=== PATIENT | female | born 1980 | race Caucasian/White ===

== ENCOUNTER 2016-10-03 18:54 | Emergency (ER) | payer MEDICAID ==
[~2016-10-03] VITALS: Ht 160 cm; Wt 86.3 kg
[2016-10-03] MEDS ORDERED: ONDANSETRON 2MG/ML, 2ML ONE (19:23)
[2016-10-03] MEDS ORDERED: METOCLOPRAMIDE 5 MG/ML, 2ML ONE (19:23)
[2016-10-03] MEDS ORDERED: DIPHENHYDRAMINE 50 MG/ML, 1ML ONE (19:23)
[2016-10-03] MEDS ORDERED: KETOROLAC 30 MG/1 ML ONE (19:23)
[2016-10-03] MEDS ORDERED: ONDANSETRON 2MG/ML, 2ML IVPush ONE (19:30)
[2016-10-03] MEDS ORDERED: DIPHENHYDRAMINE 50 MG/ML, 1ML IVPush ONE (19:30)
[2016-10-03] MEDS ORDERED: METOCLOPRAMIDE 5 MG/ML, 2ML IVPush ONE (19:30)
[2016-10-03] MEDS ORDERED: SODIUM CHLORIDE FLUSH 10ML SYR IVF ONE (19:30)
[2016-10-03] MEDS ORDERED: SODIUM CHLORIDE 0.9% 1,000ML IVBOLUS ONE (19:30)
[2016-10-03] MEDS ORDERED: KETOROLAC 30 MG/1 ML IVPush ONE (19:30)
[2016-10-03 19:53] LABS: RAPID INFLUENZA A Negative (Negative); RAPID INFLUENZA B Negative (Negative)
[2016-10-03] MEDS ORDERED: GABA-827 PO (19:53)
[2016-10-03] MEDS ORDERED: SUMA50TA3 PO (19:53)
[2016-10-03] MEDS ORDERED: VERA40TA PO (19:53)
[2016-10-03 20:11] LABS: HEMOGLOBIN 15.1 g/dL (11.7-16.4)
[2016-10-03 20:25] LABS: BLOOD UREA NITROGEN 11 mg/dL (7-18)
[2016-10-03 21:39] VITALS: BP 133/87
== END 2016-10-03 21:44 | disposition home or self-care (01) ==
LOC: ED 21:38
DX: J02.9 Acute pharyngitis, unspecified (principal); J04.0 Acute laryngitis; B34.9 Viral infection, unspecified; M19.90 Unspecified osteoarthritis, unspecified site; G43.909 Migraine, unspecified, not intractable, without status migrainosus
CPT/HCPCS: 36415; 71020; 80048; 82040; 83605; 85025; 87400; 96361; 96374; 96375; 99285; J1200; J1885; J2405; J2765; J7030

== ENCOUNTER → 2016-10-22 | Outpatient (CLI) | payer MEDICAID ==
[~2016-10-22] MED LIST: GABA-827 PO; SUMA50TA3 PO; VERA40TA PO
== END | disposition home or self-care (01) ==
LOC: CFH 12:38
PROVIDERS: ATTEND Nurse Practitioner
DX: R22.42 Localized swelling, mass and lump, left lower limb (principal)

== ENCOUNTER 2017-05-16 20:17 | Emergency (ER) | payer MEDICAID ==
[~2017-05-16] VITALS: Ht 167.6 cm; Wt 92.0 kg
[2017-05-16] MEDS ORDERED: CITA20TA9 PO (21:06)
[2017-05-16] MEDS ORDERED: BACL-19 PO (21:06)
[2017-05-16] MEDS ORDERED: DIAZEPAM 5 MG/ML, 2ML IM ONE (21:10)
[2017-05-16] MEDS ORDERED: KETOROLAC 30 MG/1 ML ONE (21:12)
[2017-05-16] MEDS ORDERED: KETOROLAC 30 MG/1 ML IM ONE (21:30)
[2017-05-16 22:33] VITALS: BP 127/80
== END 2017-05-16 22:36 | disposition home or self-care (01) ==
LOC: ED 22:00
DX: G24.3 Spasmodic torticollis (principal); G43.909 Migraine, unspecified, not intractable, without status migrainosus; G62.9 Polyneuropathy, unspecified; Z87.891 Personal history of nicotine dependence
CPT/HCPCS: 72050; 96372; 99284; J1885; J3360

== ENCOUNTER 2017-05-22 10:38 | Emergency (ER) | payer MEDICAID ==
[~2017-05-22] VITALS: Ht 160 cm; Wt 90.0 kg
[~2017-05-22 10:38] MED LIST changes: +BACL-19 PO; +CITA20TA9 PO
[2017-05-22] MEDS ORDERED: SODIUM CHLORIDE 0.9% 1,000ML IVBOLUS ONE (11:30)
[2017-05-22] MEDS ORDERED: SODIUM CHLORIDE FLUSH 10ML SYR IVF ONE (11:30)
[2017-05-22] MEDS ORDERED: VERA240T86 PO (12:15)
[2017-05-22 12:44] VITALS: BP 117/77
[2017-05-22 12:44] LABS: HEMOGLOBIN 12.5 g/dL (11.7-16.4); WHITE BLOOD COUNT 12.1 x10^3/uL (3.4-10)
[2017-05-22 12:57] LABS: ASPARTATE AMINO TRANSFERASE 11 U/L (15-37); BLOOD UREA NITROGEN 9 mg/dL (7-18)
[2017-05-22 13:04] LABS: IS PT STATUS REG ER OR PRE ER? YES
== END 2017-05-22 15:08 | disposition home or self-care (01) ==
LOC: ED 12:33
DX: R11.2 Nausea with vomiting, unspecified (principal); R19.7 Diarrhea, unspecified; G43.909 Migraine, unspecified, not intractable, without status migrainosus; G62.9 Polyneuropathy, unspecified
CPT/HCPCS: 36415; 74020; 80053; 81003; 83690; 84484; 84703; 85025; 93005; 99285; J7030

== ENCOUNTER 2018-05-14 14:04 | Emergency (ER) | payer MEDICAID ==
[~2018-05-14] VITALS: Ht 160 cm; Wt 91.2 kg
[~2018-05-14 14:04] MED LIST changes: +VERA240T86 PO
[2018-05-14 14:08] VITALS: BP 120/63
[2018-05-14] MEDS ORDERED: LIDOCAINE-MPF 1%, 5ML INFIL ONE (14:30)
[2018-05-14] MEDS ORDERED: LIDOCAINE-MPF 1%, 5ML ONE ×2 (14:51→15:29)
[2018-05-14] MEDS ORDERED: BACITRACIN ZINC OINT 500U/GM, 0.9 GM ONE (15:41)
== END 2018-05-14 15:50 | disposition home or self-care (01) ==
LOC: ED 14:44
DX: S61.011A Laceration without foreign body of right thumb without damage to nail, initial encounter (principal); G43.909 Migraine, unspecified, not intractable, without status migrainosus; F32.9 Major depressive disorder, single episode, unspecified; M54.12 Radiculopathy, cervical region; G62.9 Polyneuropathy, unspecified; M19.90 Unspecified osteoarthritis, unspecified site; Z87.798 Personal history of other (corrected) congenital malformations; Z87.09 Personal history of other diseases of the respiratory system; W26.0XXA Contact with knife, initial encounter; Y93.89 Activity, other specified; Y92.89 Other specified places as the place of occurrence of the external cause; Y99.8 Other external cause status
CPT/HCPCS: 12001; 99283

== ENCOUNTER 2020-12-04 16:15 | Emergency (ER) | payer MEDICAID ==
[~2020-12-04] VITALS: Ht 157.5 cm; Wt 94.5 kg
[~2020-12-04 16:15] MED LIST changes: +VERA240T10 PO; -VERA240T86 PO
--- NOTE | 2020-12-04 20:23 | NUR ---
conduit helper: Pt wheeled back from lobby to room at this time.
--- NOTE | 2020-12-04 20:50 | NUR ---
PT HERE FOR C/O VOMITITING X2 DAYS, DENIES ANY SICK CONTACTS. PLACED ON VITALS MONITORS, CALL LIGHT GIVEN TO PT.
[2020-12-04] MEDS ORDERED: PROMETHAZINE 25 MG/ML, 1ML ONE (21:17)
[2020-12-04] MEDS ORDERED: ONDANSETRON 2MG/ML, 2ML ONE ×2 (21:17→22:09)
[2020-12-04] MEDS ORDERED: MORPHINE SULFATE 4 MG/ML, 1ML ONE (21:18)
[2020-12-04] MEDS ORDERED: FAMOTIDINE 20 MG/2 ML ONE (21:18)
[2020-12-04] MEDS ORDERED: FAMOTIDINE 20 MG/2 ML IVPush ONE (21:30)
[2020-12-04] MEDS ORDERED: SODIUM CHLORIDE FLUSH 10ML SYR IVF ONE (21:30)
[2020-12-04] MEDS ORDERED: PROMETHAZINE 25 MG/ML, 1ML IM ONE (21:30)
[2020-12-04] MEDS ORDERED: ONDANSETRON 2MG/ML, 2ML IVPush ONE (21:30)
[2020-12-04] MEDS ORDERED: SODIUM CHLORIDE 0.9% 1,000ML IVBOLUS ONE (21:30)
[2020-12-04] MEDS ORDERED: MORPHINE SULFATE 4 MG/ML, 1ML IVPush PRN (21:30)
[2020-12-04 21:32] LABS: MEAN CORPUSCULAR HEMOGLOBIN 28.2 pg (27.0-34.8); MEAN CORPUSCULAR HGB CONC 34.4 g/dL (32.4-35.8); MEAN PLATELET VOLUME 6.6 fL (7.4-10.4); PLATELET COUNT 300 x10^3/uL (130-400); RED BLOOD COUNT 5.39 x10^6/uL (3.82-5.3); RED CELL DISTRIBUTION WIDTH 13.8 % (9.6-15.2)
[2020-12-04 21:36] LABS: ALANINE AMINOTRANSFERASE 17 U/L (12-78); ALBUMIN 3.7 g/dL (3.4-5.0); ANION GAP 9 mmol/L (5-15); CALCIUM 9.1 mg/dL (8.5-10.1); CHLORIDE 106 mmol/L (98-107); CREATININE 0.89 mg/dL (0.55-1.02)
[2020-12-04 21:39] LABS: ALKALINE PHOSPHATASE 66 U/L (45-117); BILIRUBIN,TOTAL 0.6 mg/dL (0.2-1.0); TOTAL PROTEIN 7.9 g/dL (6.4-8.2)
[2020-12-04 22:03] LABS: ANISOCYTOSIS 1+; LYMPH#(MANUAL) 5.35 x10^3/uL (1-3.4); LYMPHS% (MANUAL) 25 % (22-44); MICROCYTOSIS 1+; MONOS% (MANUAL) 7 % (2-9); POLYCHROMASIA 1+; REACTIVE LYMPHS # (MANUAL) 0.21 x10^3/uL (0-0); REACTIVE LYMPHS % (MANUAL) 1 % (0-0); SEG#(MANUAL) 14.34 x10^3/uL (1.8-6.8); SEGS% (MANUAL) 67 % (42-75)
[2020-12-04 22:04] LABS: <PLATELET ESTIMATE> ADEQUATE; SMALL PLATELETS 1+
--- NOTE | 2020-12-04 22:08 | NUR ---
PT RESTING IN NAD, REPORTS PAIN RELIEF AFTER MEDS. VSS.
--- NOTE | 2020-12-04 22:22 | NUR ---
PT AMBULATED TO RESTROOM FOR URINE SAMPLE.
[2020-12-04 22:31] LABS: MICROSCOPIC INDICATED
--- NOTE | 2020-12-04 22:43 | NUR ---
PT TRANSPORTED TO CT.
[2020-12-04] MEDS ORDERED: OMNIPAQUE 350 MG/ML, 100ML BOTTLE ONE (22:51)
--- NOTE | 2020-12-04 23:05 | NUR ---
Back from CT, waiting for re-evaluation. VSS, call cleary in reach.
--- NOTE | 2020-12-04 23:06 | NUR ---
Pt resting in [facility], says feels much better, VSS. Call cleary in reach; waiting for CT results. AIDET provided.
--- NOTE | 2020-12-04 23:48 | NUR ---
Pt asked for IV d/c, removed. Pt states feels better, CT resulted. Waiting for ERP re-eval and dispo. No stool specimen provided by pt
[2020-12-05 00:18] VITALS: BP 135/78
== END 2020-12-05 00:20 | disposition home or self-care (01) ==
LOC: ED 20:55
DX: E86.0 Dehydration (principal); R11.2 Nausea with vomiting, unspecified; R10.84 Generalized abdominal pain; G43.909 Migraine, unspecified, not intractable, without status migrainosus; M19.90 Unspecified osteoarthritis, unspecified site
CPT/HCPCS: 36415; 74177; 80053; 81001; 83690; 85025; 87086; 96361; 96372; 96374; 96375; 99285; J2270; J2405; J2550; J7030; Q9967

== ENCOUNTER 2021-02-25 14:58 | Emergency (ER) | payer MEDICAID ==
[~2021-02-25] VITALS: Ht 157.5 cm; Wt 91.9 kg
[~2021-02-25 14:58] MED LIST changes: -VERA240T10 PO; +VERA240T28 PO
[2021-02-25 15:02] VITALS: BP 130/73
[2021-02-25] MEDS ORDERED: HYDROcodone/APAP 5/325 TABLET PO ONE (15:30)
[2021-02-25] MEDS ORDERED: LIDOCAINE-MPF 1%, 5ML INFIL ONE (15:30)
--- NOTE | 2021-02-25 16:46 | NUR ---
drum attendant note: Pt to room from lobby.
[2021-02-25] MEDS ORDERED: HYDROcodone/APAP 5/325 TABLET ONE (16:57)
[2021-02-25] MEDS ORDERED: LIDOCAINE-MPF 1%, 5ML ONE (16:57)
--- NOTE | 2021-02-25 17:05 | NUR ---
MAGNETIC TESTING TECHNICIAN PER MAR. NELSON PULLED FOR PROVIDER ADMIN. SUCTION SET UP.
== END 2021-02-25 18:05 | disposition home or self-care (01) ==
LOC: ED 16:33
DX: K02.9 Dental caries, unspecified (principal); K04.7 Periapical abscess without sinus
CPT/HCPCS: 99282; 99283